=== PATIENT | female | born 1990 | race Caucasian/White ===

== ENCOUNTER 2017-07-19 18:52 | Emergency (ER) | payer OTHER ==
[~2017-07-19] VITALS: Ht 160 cm; Wt 110.7 kg
== END 2017-07-19 22:56 | disposition home or self-care (01) ==
LOC: ER 18:52
DX: M62.830 Muscle spasm of back (principal); M54.2 Cervicalgia

== ENCOUNTER 2018-07-15 16:02 | Emergency (ER) | payer OTHER ==
[~2018-07-15] VITALS: Ht 160 cm; Wt 108.9 kg
== END 2018-07-15 18:20 | disposition home or self-care (01) ==
LOC: ER 16:02
DX: S83.92XA Sprain of unspecified site of left knee, initial encounter (principal); M25.562 Pain in left knee; X50.3XXA Overexertion from repetitive movements, initial encounter; Y93.89 Activity, other specified; Y92.89 Other specified places as the place of occurrence of the external cause; Y99.8 Other external cause status

== ENCOUNTER 2019-02-28 05:50 | Emergency (ER) | payer OTHER ==
[~2019-02-28] VITALS: Ht 160 cm; Wt 117.9 kg
[2019-02-28] MEDS ORDERED: PEPCID AC20 MG PO (09:27)
== END 2019-02-28 09:54 | disposition home or self-care (01) ==
LOC: ER 05:50
DX: K80.20 Calculus of gallbladder without cholecystitis without obstruction (principal); R10.11 Right upper quadrant pain

== ENCOUNTER → 2019-04-23 11:45 | Outpatient (CLI) | payer OTHER | END | disposition home or self-care (01) | LOC: LAB 11:45 | DX: N20.0 Calculus of kidney (principal) ==

== ENCOUNTER → 2019-04-23 | Outpatient (CLI) | payer OTHER ==
[~2019-04-23] MED LIST: PEPCID AC20 MG PO
== END | disposition home or self-care (01) ==
LOC: RAD 13:34
DX: Q43.1 Hirschsprung's disease (principal); K80.10 Calculus of gallbladder with chronic cholecystitis without obstruction

== ENCOUNTER → 2019-04-30 | Outpatient (CLI) | payer OTHER ==
[~2019-04-30] MED LIST changes: +PERCOCET 5-3251 EACH PO; +POLY119PG PO; +SURFAK240 M1 PO
== END | disposition home or self-care (01) ==
LOC: RX STUDY 07:52
DX: Q43.1 Hirschsprung's disease (principal)

== ENCOUNTER 2019-05-02 09:00 | Day surgery (SDC) | payer OTHER ==
[~2019-05-02 09:00] MED LIST changes: -PERCOCET 5-3251 EACH PO; -POLY119PG PO; -SURFAK240 M1 PO
[2019-05-02] MEDS ORDERED: SURFAK240 M1 PO (16:06)
[2019-05-02] MEDS ORDERED: PERCOCET 5-3251 EACH PO (16:06)
[2019-05-02] MEDS ORDERED: POLY119PG PO (16:07)
== END 2019-05-02 18:20 | disposition home or self-care (01) ==
LOC: CIR.AMB 09:00
DX: K80.10 Calculus of gallbladder with chronic cholecystitis without obstruction (principal); K66.0 Peritoneal adhesions (postprocedural) (postinfection)